=== PATIENT | female | born 1970 | race Caucasian/White ===

== ENCOUNTER 2019-05-26 19:16 | Emergency (ER) | payer OTHER ==
[~2019-05-26] VITALS: Ht 162.6 cm; Wt 81.2 kg
[~2019-05-26 19:16] MED LIST: ALBU90OI; ALBU90OI INH; ALBU90OI6 INH; ALBU90OI61 INH; AZIT250 PO; BUDE6HFA INH; CARI350 PO; CEPH500 PO; CLOM50A; CLON1; CLON1 PO; CLON2; CODACE30 PO; Cipro250 MG PO; DOCU100 PO; ERYT250 PO; ERYT500; FAMO20 PO; FERR325 PO; FISH1000; FLUV50; HYDACE5 PO; HYDHCL25 PO; HYDPAM25 PO; IBUP600 PO; IBUP800; LORA1; LORA1 PO; MECL25; MECL25 PO; METO10 PO; MICO2TCA TOP; MULVITMINE; MULVITMINE PO; NAPR500; NAPR500 PO; NIFEDICAL XL; OXYACE5T PO; POTCHL20ER PO; PRED20 PO; PRENZ; PRENZ PO; PROG100; PROG100 PO; PROGESTERONE CREAM; PROM25; Pepcid20 MG PO; Percocet 5-3251 EACH PO; QUET100; QUET25; RANI150; RISP.25; RXCODACET PO; RXOXYACE PO; SERT100 PO; SERT25; SULTRIDS PO; TRIAOI; Valium5 MG PO; [UNRECOGNIZED DRUG - OTHER]; [UNRECOGNIZED DRUG - OTHER]; [UNRECOGNIZED DRUG - OTHER]; [UNRECOGNIZED DRUG - REMARK]; [UNRECOGNIZED DRUG - REMARK]
[2019-05-26 19:37] LABS: Source, Urine Clean Catch
[2019-05-26 19:41] LABS: Bilirubin, Urine Neg (Neg); Blood, Urine 2+ (Neg); Glucose Qualitative, Urine Neg (Neg); Ketones, Urine Neg (Neg); Leukocyte Esterase, Urine 2+ (Neg); Nitrite, Urine Neg (Neg); Protein, Urine Neg (Neg); Urobilinogen, Urine NORM (Normal)
[2019-05-26 19:49] LABS: Appearance, Urine Clear (Clear); Color, Urine Yellow (P-Yellow); White Blood Cells, Urine 25-50 /hpf (0-5)
[2019-05-26 19:50] LABS: Bacteria Few /hpf; Squamous Epithelial Cells Mod /hpf (Few)
[2019-05-26] MEDS ORDERED: CEPH500 PO (20:10)
[2019-05-26] MEDS ORDERED: Cyclobenzaprine5 MG PO (20:10)
[2019-05-26] MEDS ORDERED: IBUP800 PO (20:10)
== END 2019-05-26 20:19 | disposition home or self-care (01) ==
LOC: ER 19:16
PROVIDERS: Physician Assistant
DX: M54.2 Cervicalgia (principal); N39.0 Urinary tract infection, site not specified; F32.9 Major depressive disorder, single episode, unspecified; J45.909 Unspecified asthma, uncomplicated; Z88.0 Allergy status to penicillin; Z79.899 Other long term (current) drug therapy
CPT/HCPCS: 81001; 87077; 87086; 87186; 99283

== ENCOUNTER 2022-03-09 08:42 | Emergency (ER) | payer OTHER ==
[~2022-03-09] VITALS: Ht 157.5 cm; Wt 82.5 kg
[~2022-03-09 08:42] MED LIST changes: +Cyclobenzaprine5 MG PO; +IBUP800 PO
[2022-03-09 09:35] LABS: Source, Urine Clean Catch
[2022-03-09 09:43] LABS: Appearance, Urine Turbid (Clear); Bilirubin, Urine Neg (Neg); Blood, Urine 5+ (Neg); Color, Urine Brown (P-Yellow); Glucose Qualitative, Urine Neg (Neg); Ketones, Urine Neg (Neg); Leukocyte Esterase, Urine 3+ (Neg); Nitrite, Urine Neg (Neg); Protein, Urine 3+ (Neg); Specific Gravity, Urine 1.025 (1.003-1.022); Urobilinogen, Urine NORM (Normal)
[2022-03-09 10:00] LABS: Bacteria Mod /hpf; Red Blood Cells, Urine TNTC /hpf (0-2); Squamous Epithelial Cells Few /hpf (Few); White Blood Cells, Urine TNTC /hpf (0-5)
[2022-03-09 10:53] LABS: Alanine Aminotransfer (ALT/SGP 33 U/L (12-78); Albumin, Blood 3.6 g/dL (3.4-5.0); Alk Phos 80 U/L (50-136); Anion Gap 5 mmol/L (6-16); Aspartate Aminotrans (AST/SGOT 20 U/L (12-37); Bilirubin, Total 0.3 mg/dL (0.1-1.0); Blood Urea Nitrogen 15 mg/dL (8-24); CO2, Blood 27 mmol/L (21-32); Chloride, Blood 109 mmol/L (98-108); Creatinine, Blood 0.79 mg/dL (0.40-1.00); Globulin, Blood 3.6 g/dL (2.2-4.0); Glomerular Filtration Rate >60 (60-); Glucose, Blood 95 mg/dL (70-99); Potassium, Blood 4.2 mmol/L (3.5-5.5); Sodium, Blood 141 mmol/L (136-145); Total Protein, Blood 7.2 g/dL (6.4-8.2)
[2022-03-09 11:45] LABS: BASOPHILS ABSOLUTE AUTO 0.03 K/mm3 (0.00-0.23); BASOPHILS PERCENT AUTO 0 % (0-2); EOSINOPHILS ABSOLUTE AUTO 0.27 K/mm3 (0.00-0.68); EOSINOPHILS PERCENT AUTO 3 % (0-6); Hematocrit 39.3 % (33.0-51.0); Hemoglobin 12.9 g/dL (11.5-16.0); IMMATURE GRAN ABSOLUTE AUTO 0.03 K/mm3 (0.00-0.10); IMMATURE GRAN PERCENT AUTO 0 % (0-1); LYMPHOCYTES ABSOLUTE AUTO 2.68 K/mm3 (0.84-5.20); LYMPHOCYTES PERCENT AUTO 27 % (21-46); MONOCYTES ABSOLUTE AUTO 0.87 K/mm3 (0.16-1.47); MONOCYTES PERCENT AUTO 9 % (4-13); Mean Corpuscular HGB 30.1 pg (26.0-34.0); Mean Corpuscular HGB Conc 32.8 g/dL (31.5-36.5); Mean Corpuscular Volume 92 fL (80-100); Mean Platelet Volume 9.4 fL (9.1-12.4); NEUTROPHILS ABSOLUTE AUTO 5.95 K/mm3 (1.96-9.15); NEUTROPHILS PERCENT AUTO 61 % (41-73); Platelet Count 312 K/mm3 (150-400); RDW Coefficient Variation 11.9 % (11.7-14.2); RDW Standard Deviation 40.4 fL (35.1-46.3); Red Blood Cell Count 4.29 M/mm3 (3.80-5.20); White Blood Cell Count 9.83 K/mm3 (4.00-11.30)
[2022-03-09] MEDS ORDERED: CEPH500 PO (12:18)
[2022-03-09] MEDS ORDERED: ONDA4ODT MM (12:18)
== END 2022-03-09 13:00 | disposition home or self-care (01) ==
LOC: ER 08:42
PROVIDERS: Emergency Medicine
DX: N39.0 Urinary tract infection, site not specified (principal); E03.9 Hypothyroidism, unspecified; Z88.0 Allergy status to penicillin; Z88.5 Allergy status to narcotic agent; Z79.899 Other long term (current) drug therapy
CPT/HCPCS: 36415; 74176; 80053; 81001; 81025; 83690; 85025; 87077; 87086; 87186; 96374; 96375; 99284-25; J0696; J1885; J2405

== ENCOUNTER → 2022-06-05 | Outpatient (CLI) | payer OTHER ==
[~2022-06-05] MED LIST changes: +ONDA4ODT MM
== END | disposition home or self-care (01) ==
LOC: LAB 06:00 → LAB SHORT 06:00
DX: N20.0 Calculus of kidney (principal)
CPT/HCPCS: 81050

== ENCOUNTER 2023-06-30 16:17 | Emergency (ER) | payer OTHER ==
[~2023-06-30] VITALS: Ht 162.6 cm; Wt 83.9 kg
[2023-06-30 16:29] VITALS: BP 146/93
== END 2023-06-30 17:46 | disposition home or self-care (01) ==
LOC: ER 16:17
DX: S60.031A Contusion of right middle finger without damage to nail, initial encounter (principal); W22.8XXA Striking against or struck by other objects, initial encounter; Z88.8 Allergy status to other drugs, medicaments and biological substances; Z88.5 Allergy status to narcotic agent; Z88.0 Allergy status to penicillin; Z79.899 Other long term (current) drug therapy; J45.909 Unspecified asthma, uncomplicated; E03.9 Hypothyroidism, unspecified
CPT/HCPCS: 73140; A9270; J1885

== ENCOUNTER 2023-07-16 08:12 | Day surgery (SDC) | payer OTHER ==
[~2023-07-16] VITALS: Ht 162.6 cm; Wt 83.6 kg
[2023-07-16] MEDS ORDERED: SERT100 (08:45)
[2023-07-16] MEDS ORDERED: ESTRADIOL1 EAC2 (08:46)
[2023-07-16] MEDS ORDERED: CYCL10 (08:46)
[2023-07-16] MEDS ORDERED: PROG100 (08:46)
[2023-07-16 10:16] VITALS: BP 104/80
== END 2023-07-16 10:20 | disposition home or self-care (01) ==
LOC: ORSCSDS 08:12
PROVIDERS: Internal Medicine Gastroenterology
PROC: 0DB78ZX Excision of Stomach, Pylorus, Via Natural or Artificial Opening Endoscopic, Diagnostic (ICD-10-PCS; principal; 2023-07-16 09:45)
PROC: 0DBE8ZX Excision of Large Intestine, Via Natural or Artificial Opening Endoscopic, Diagnostic (ICD-10-PCS; principal; 2023-07-16 09:45)
PROC: 0DB98ZX Excision of Duodenum, Via Natural or Artificial Opening Endoscopic, Diagnostic (ICD-10-PCS; principal; 2023-07-16 09:45)
DX: R19.7 Diarrhea, unspecified (principal); R19.5 Other fecal abnormalities; K29.70 Gastritis, unspecified, without bleeding; K44.9 Diaphragmatic hernia without obstruction or gangrene; K64.8 Other hemorrhoids; K64.4 Residual hemorrhoidal skin tags; K57.30 Diverticulosis of large intestine without perforation or abscess without bleeding; Z79.899 Other long term (current) drug therapy; E03.9 Hypothyroidism, unspecified
CPT/HCPCS: 88305; 88342; J2250; J2704; J7120

== ENCOUNTER 2023-12-17 18:26 | Emergency (ER) | payer OTHER ==
[~2023-12-17] VITALS: Ht 160 cm; Wt 83.0 kg
[~2023-12-17 18:26] MED LIST changes: +CYCL10; +ESTRADIOL1 EAC2; +SERT100
[2023-12-17 18:54] VITALS: BP 106/71
== END 2023-12-17 23:15 | disposition home or self-care (01) ==
LOC: ER 18:26
DX: S06.0X0A Concussion without loss of consciousness, initial encounter (principal); S01.01XA Laceration without foreign body of scalp, initial encounter; W22.8XXA Striking against or struck by other objects, initial encounter; Z88.0 Allergy status to penicillin; Z88.5 Allergy status to narcotic agent; Z88.8 Allergy status to other drugs, medicaments and biological substances; Z79.899 Other long term (current) drug therapy; J45.909 Unspecified asthma, uncomplicated; E03.9 Hypothyroidism, unspecified
CPT/HCPCS: 12001; 70450; 90471; 90714; 99283-25

== ENCOUNTER → 2024-05-30 | Outpatient (CLI) | payer OTHER ==
[2024-05-31 14:32] LABS: Adenovirus F 40/41 Not Detected (NOT DETECT); Astrovirus Not Detected (NOT DETECT); Campylobacter Sp Not Detected (NOT DETECT); Cryptosporidium Not Detected (NOT DETECT); Cyclospora Cayetanensis Not Detected (NOT DETECT); E. Coli O157 Not Detected (NOT DETECT); Entamoeba Histolytica Not Detected (NOT DETECT); Enteroaggregative E. coli-EAEC Not Detected (NOT DETECT); Enteropathogenic E. coli-EPEC Not Detected (NOT DETECT); Enterotoxigenic E. coli-ETEC Not Detected (NOT DETECT); Giardia Lamblia Not Detected (NOT DETECT); Norovirus GI/GII Not Detected (NOT DETECT); Plesiomonas Shigelloides Not Detected (NOT DETECT); Rotavirus A Not Detected (NOT DETECT); Salmonella Sp Not Detected (NOT DETECT); Sapovirus Not Detected (NOT DETECT); Shiga Toxin-prod E. coli-STEC Not Detected (NOT DETECT); Shigella/Enteroin E. coli-EIEC Not Detected (NOT DETECT); Vibrio Cholerae Not Detected (NOT DETECT); Vibrio Sp Not Detected (NOT DETECT); Yersinia Enterocolitica Not Detected (NOT DETECT)
== END | disposition home or self-care (01) ==
LOC: LAB SHORT 11:20 → LAB 11:20
PROVIDERS: Physician Assistant Medical
DX: R19.7 Diarrhea, unspecified (principal)
CPT/HCPCS: 87507

== ENCOUNTER → 2024-06-23 | Outpatient (CLI) | payer OTHER ==
[2024-06-27 23:30] LABS: PANCREATIC ELASTASE,FECAL >800 ug/g (>=100)
== END | disposition home or self-care (01) ==
LOC: LAB SHORT 17:18
PROVIDERS: Physician Assistant Medical
DX: R19.7 Diarrhea, unspecified (principal)
CPT/HCPCS: 82653; 84999; 87338

== ENCOUNTER → 2024-08-17 | Outpatient (CLI) | payer OTHER ==
[2024-08-17 16:31] LABS: Adenovirus F 40/41 Not Detected (NOT DETECT); Astrovirus Not Detected (NOT DETECT); Campylobacter Sp Not Detected (NOT DETECT); Cryptosporidium Not Detected (NOT DETECT); Cyclospora Cayetanensis Not Detected (NOT DETECT); E. Coli O157 Not Detected (NOT DETECT); Entamoeba Histolytica Not Detected (NOT DETECT); Enteroaggregative E. coli-EAEC Not Detected (NOT DETECT); Enteropathogenic E. coli-EPEC Not Detected (NOT DETECT); Enterotoxigenic E. coli-ETEC Not Detected (NOT DETECT); Giardia Lamblia Not Detected (NOT DETECT); Norovirus GI/GII Not Detected (NOT DETECT); Plesiomonas Shigelloides Not Detected (NOT DETECT); Rotavirus A Not Detected (NOT DETECT); Salmonella Sp Not Detected (NOT DETECT); Sapovirus Not Detected (NOT DETECT); Shiga Toxin-prod E. coli-STEC Not Detected (NOT DETECT); Shigella/Enteroin E. coli-EIEC Not Detected (NOT DETECT); Vibrio Cholerae Not Detected (NOT DETECT); Vibrio Sp Not Detected (NOT DETECT); Yersinia Enterocolitica Not Detected (NOT DETECT)
== END ==
LOC: LAB SHORT 11:25 → LAB 11:25
PROVIDERS: Physician Assistant Medical
DX: R19.7 Diarrhea, unspecified (principal)
CPT/HCPCS: 87507

== ENCOUNTER 2024-10-06 05:40 | Day surgery (SDC) | payer OTHER ==
[~2024-10-06] VITALS: Ht 160 cm; Wt 83.8 kg
[2024-10-06] VITALS (18 sets, daily range): BP systolic 102–150; BP diastolic 67–89
[~2024-10-06 05:40] MED LIST changes: +AIRSUPRA 90-810.7 GM INH; +AIRSUPRA 90-810.7 GM PO; +ASPI81CH PO; +ESTRADIOL (TWI1 EAC3 TOP; +Estrace Vagin42.5 GM VAG; +FLUTICASONE-SAL12 G2 INH; +MONT10T PO; +Norethindrone Ac5 MG PO; +PANT40 PO; +Premarin0.3 MG PO; +ROSUVASTATIN CA10 MG PO; +ZYRTEC10 M2 PO
[2024-10-06] MEDS ORDERED: Lactated Ringer's 1,000 ML IV SCH ×2 (06:35→11:25)
[2024-10-06] MEDS ORDERED: CeFAZolin Sodium 2,000 MG in NS 100 ML IV SCH ×2 (06:35→14:00)
[2024-10-06] MEDS ORDERED: FentaNYL Citrate 50 MCG/ML 2 ML Injection ONE ×2 (07:25→11:12)
[2024-10-06] MEDS ORDERED: Ondansetron HCl 2 MG / ML 2ML Vial ONE ×2 (07:25→11:27)
[2024-10-06] MEDS ORDERED: Midazolam HCl 1MG / ML 2ML Vial ONE (07:25)
[2024-10-06] MEDS ORDERED: Dexamethasone Sod Phos 10 MG/ML 1ML VIAL ONE (07:25)
[2024-10-06] MEDS ORDERED: Rocuronium Bromide 10 MG/ML 5ML Injection IV ONE (07:25)
[2024-10-06] MEDS ORDERED: propofoL 20 ML IV ONE ×2 (07:25→09:45)
[2024-10-06] MEDS ORDERED: ALPRAZOLAM0.5 MG PO (07:30)
[2024-10-06] MEDS ORDERED: FERSU300 PO (07:32)
[2024-10-06] MEDS ORDERED: IPRAT-ALBUT 0.5-3 ML IH (07:33)
[2024-10-06] MEDS ORDERED: Bupivacaine 0.5% HCl 5 MG/ML 30MLVIAL ONE (07:51)
[2024-10-06] MEDS ORDERED: propofoL 40 ML IV ONE ×2 (09:12→09:58)
[2024-10-06] MEDS ORDERED: HYDROmorphone HCl/Pf 1MG SYR ONE ×2 (09:20→11:27)
[2024-10-06] MEDS ORDERED: Sugammadex Sodium 200 MG/2ML SDV (100 MG/ML) ONE (09:51)
[2024-10-06] MEDS ORDERED: Ketorolac Tromethamine 30mg Vial ONE (10:53)
[2024-10-06] MEDS ORDERED: Cyclobenzaprine HCl 10 MG Tab PO PRN (11:15)
[2024-10-06] MEDS ORDERED: ALPRAZolam 0.5 MG Tab PO PRN (11:15)
[2024-10-06] MEDS ORDERED: Ipratropium/Albuterol SulF 2.5-0.5MG/3 ML Amp INH SCH (11:15)
[2024-10-06] MEDS ORDERED: Ondansetron HCl 2 MG / ML 2ML Vial IV PRN (11:25)
[2024-10-06] MEDS ORDERED: Mometasone/Formoterol MDI 200/5 mcg 13 GM INH SCH (11:25)
[2024-10-06] MEDS ORDERED: Albuterol HFA200 ACT/6.7 GM INH INH PRN (11:25)
[2024-10-06] MEDS ORDERED: Naloxone HCl 0.4MG / ML 1ML Vial IV PRN (11:25)
[2024-10-06] MEDS ORDERED: Promethazine HCl 25 MG Tab PO PRN (11:25)
[2024-10-06] MEDS ORDERED: Promethazine HCl 12.5 MG Supp PR PRN (11:30)
[2024-10-06] MEDS ORDERED: Ondansetron 4 MG TAB PO PRN (11:30)
[2024-10-06] MEDS ORDERED: Simethicone 80 MG Chew PO PRN (11:30)
[2024-10-06] MEDS ORDERED: HYDROmorphone HCl/Pf 1MG SYR IV PRN (11:30)
[2024-10-06] MEDS ORDERED: OxyCODONE 5 mg/Acetamin 325 mg TABLET PO PRN (11:30)
[2024-10-06] MEDS ORDERED: FLU VACC TS2024-25(6MOS UP)/PF 45 MCG/0.5 ML SYRINGE IM SCH (11:35)
[2024-10-06] MEDS ORDERED: Ketorolac Tromethamine 30mg Vial IV PRN (12:15)
--- NOTE | 2024-10-06 17:34 | NUR ---
Pt. is awake in bed when she welcomes my visit. Pt. is pleasant and spouse is at bedside. Facilitated a life review and made multiple relational connections from the community as rapport is established. Pt. displayed evidence of great trust. Pt. was unsettled by the limited amount of movemement she was experiencing. Sought to normalize the Pt. experience. A lengthy time of encouragement and pastoral care is given. Prayed for pt. Pt. and spouse verbalize gratitude for the spiritual care they received.
--- NOTE | 2024-10-06 19:32 | NUR ---
SHIFT SUMMARY POD0 LAP HYSTER, A/OX4, VSS, TOLERATING PO, ABD LAP SITES C/D/I, PAM PAD HAD SMALL AMT DRAINAGE AND CHANGED 1X BY THIS RN. DECKER REMOVED AT AROUND 191 AND SHE HAS YET TO VOID OR GET UP. SHE WAS REPORTING HIGH PAIN LEVELS WHEN SHE ARRIVED ON THE FLOOR BUT WAS ALSO VERY SLEEPY AND WOULD FALL ASLEEP AFTER ASKING FOR MEDS. PAIN WAS MEDICATING FOR AFTER SHE WAS ABLE TO WAKE UP MORE AND IT COULD BE GIVEN SAFELY. NO OTHER EVENTS THIS SHIFT, CALL LIGHT IN REACH.
[2024-10-06] MEDS ORDERED: Montelukast Sodium 10 MG Tab PO SCH (21:00)
[2024-10-06] MEDS ORDERED: Loratadine 10 MG Tab PO SCH (21:00)
[2024-10-06] MEDS ORDERED: Sertraline HCl 100 MG Tab PO SCH (21:00)
[2024-10-06] MEDS ORDERED: Rosuvastatin Calcium 10 MG Tab PO SCH (21:00)
[2024-10-06] MEDS ORDERED: Aspirin 81 MG Chew PO SCH (21:00)
[2024-10-07 03:26] VITALS: BP 115/69
[2024-10-07 05:14] LABS: BASOPHILS ABSOLUTE AUTO 0.03 K/mm3 (0.00-0.23); BASOPHILS PERCENT AUTO 0 % (0-2); EOSINOPHILS PERCENT AUTO 0 % (0-6); Hematocrit 36.1 % (33.0-51.0); IMMATURE GRAN ABSOLUTE AUTO 0.09 K/mm3 (0.00-0.10); IMMATURE GRAN PERCENT AUTO 1 % (0-1); LYMPHOCYTES ABSOLUTE AUTO 1.75 K/mm3 (0.84-5.20); LYMPHOCYTES PERCENT AUTO 9 % (21-46); MONOCYTES ABSOLUTE AUTO 1.31 K/mm3 (0.16-1.47); MONOCYTES PERCENT AUTO 7 % (4-13); Mean Corpuscular HGB Conc 33.2 g/dL (31.5-36.5); Mean Corpuscular Volume 90 fL (80-100); NEUTROPHILS ABSOLUTE AUTO 16.72 K/mm3 (1.96-9.15); NEUTROPHILS PERCENT AUTO 84 % (41-73); Platelet Count 279 K/mm3 (150-400); RDW Coefficient Variation 12.4 % (11.7-14.2); RDW Standard Deviation 41.1 fL (35.1-46.3)
--- NOTE | 2024-10-07 05:28 | NUR ---
SHIFT SUMMARY NOC. PT POD 1 FOR LAP ASSISTED HYSTERECTOMY. PT LAP SITES X4 C/D/I. ABDOMINAL BINDER IN PLACE. PT MEDICATED FOR PAIN WITH ORALS AND BREAKTHROUGH IV DILAUDID. PT ANXIOUS AND NEEDED REASSURANCE. PT VOIDING URINE AND TOLERATING DIET. PT REPORTS GAS PAINS IN RIGHT SHOULDER, MEDICATED WITH SIMETHICONE. PT AMBULATES TO WITH SBA. BED IN LOWEST POSITION AND CALL LIGHT IN REACH.
[2024-10-07] MEDS ORDERED: Pantoprazole Sodium 40 MG Tab PO SCH (06:00)
[2024-10-07 07:11] VITALS: BP 104/64
[2024-10-07] MEDS ORDERED: Magnesium Hydroxide Conc 10 ML UDC PO ONE (11:05)
[2024-10-07 14:20] VITALS: BP 137/87
--- NOTE | 2024-10-07 14:24 | NUR ---
AFTER AMBULATING HALLWAY, PT REPORTED PRESSURE NEAR HER RIGHT CLAVICLE AND SHOULDER AREA. PT STATES THE PAIN COMES AND GOES. PT VERBALIZES SHE THINKS IT IS GAS PAIN. PT REPORTS SHE WAS HAVING SIMILAR PAINS LAST NOC. VSS. PT ABD MODERATELY DISTENDED. PT REPORTS ONLY PASSING A VERY SMALL AMOUNT OF FLATUS.
--- NOTE | 2024-10-07 14:31 | NUR ---
While walking the el the Pt complained of SOB and slight chest pain. RN notified and came in and assessed Pt.
[2024-10-07 15:17] VITALS: BP 130/62
[2024-10-07] MEDS ORDERED: Percocet 5-3251 EACH PO (17:53)
[2024-10-07] MEDS ORDERED: PROM25 PO (17:53)
[2024-10-07] MEDS ORDERED: SIME80CH PO (17:53)
[2024-10-07] MEDS ORDERED: MIRALAX17 GM PO (17:54)
--- NOTE | 2024-10-07 18:20 | NUR ---
DISCHARGE PT EDUCATED ON AND RECEIVED PRINTED DISCHARGE INSTRUCTIONS AND VERBALIZED AN UNDERSTANDING. PT REPORTS FILLING NEW RX PRIOR TO ADMISSION. IV DC'D. PT LEFT WITH PERSONAL BELONGINGS AND ESCORTED OUT VIA W/C WITH TO TAKE HER HOME.
[2024-10-12] MEDS ORDERED: ELIQUIS5 M2 PO (19:19)
== END 2024-10-07 18:38 | disposition home or self-care (01) ==
LOC: ORSCMMR 05:40 → ORD 08:00 → ORSCMMR 08:00 → SURS 12:00 → ORSCMMR 10-07 18:38 → ORD 11-24 11:00
PROVIDERS: Obstetrics & Gynecology
PROC: 0UT94ZZ Resection of Uterus, Percutaneous Endoscopic Approach (ICD-10-PCS; principal; 2024-10-06 08:00)
PROC: 0UT74ZZ Resection of Bilateral Fallopian Tubes, Percutaneous Endoscopic Approach (ICD-10-PCS; principal; 2024-10-06 08:00)
PROC: 0UT24ZZ Resection of Bilateral Ovaries, Percutaneous Endoscopic Approach (ICD-10-PCS; principal; 2024-10-06 08:00)
PROC: 0U5F4ZZ Destruction of Cul-de-sac, Percutaneous Endoscopic Approach (ICD-10-PCS; principal; 2024-10-06 08:00)
DX: N95.0 Postmenopausal bleeding (principal); N94.6 Dysmenorrhea, unspecified; N94.10 Unspecified dyspareunia; N80.329 Endometriosis of the posterior cul-de-sac, unspecified depth; D25.9 Leiomyoma of uterus, unspecified; N73.6 Female pelvic peritoneal adhesions (postinfective); N83.8 Other noninflammatory disorders of ovary, fallopian tube and broad ligament; G47.33 Obstructive sleep apnea (adult) (pediatric); E78.5 Hyperlipidemia, unspecified; K21.9 Gastro-esophageal reflux disease without esophagitis; F32.A Depression, unspecified; F41.9 Anxiety disorder, unspecified; E03.9 Hypothyroidism, unspecified; Z79.899 Other long term (current) drug therapy; J45.909 Unspecified asthma, uncomplicated; Z79.82 Long term (current) use of aspirin; Z86.73 Personal history of transient ischemic attack (TIA), and cerebral infarction without residual deficits
CPT/HCPCS: 36415; 82947; 85025; 86850; 86900; 86901; 88307; 94640; 94664; 94762; A9270; J0690; J1100; J1171; J1885; J2250; J2405; J2704; J3010; J7120

== ENCOUNTER 2024-10-23 14:05 | Emergency (ER) | payer OTHER ==
[~2024-10-23] VITALS: Ht 162.6 cm; Wt 79.8 kg
[~2024-10-23 14:05] MED LIST changes: +ALPRAZOLAM0.5 MG PO; +ELIQUIS5 M2 PO; +FERSU300 PO; +IPRAT-ALBUT 0.5-3 ML IH; +MIRALAX17 GM PO; +PROM25 PO; +SIME80CH PO
[2024-10-23 14:53] LABS: BASOPHILS ABSOLUTE AUTO 0.06 K/mm3 (0.00-0.23); BASOPHILS PERCENT AUTO 1 % (0-2); EOSINOPHILS ABSOLUTE AUTO 0.21 K/mm3 (0.00-0.68); EOSINOPHILS PERCENT AUTO 2 % (0-6); Hematocrit 41.2 % (33.0-51.0); Hemoglobin 14.1 g/dL (11.5-16.0); IMMATURE GRAN ABSOLUTE AUTO 0.02 K/mm3 (0.00-0.10); IMMATURE GRAN PERCENT AUTO 0 % (0-1); LYMPHOCYTES ABSOLUTE AUTO 2.84 K/mm3 (0.84-5.20); LYMPHOCYTES PERCENT AUTO 32 % (21-46); MONOCYTES ABSOLUTE AUTO 0.79 K/mm3 (0.16-1.47); MONOCYTES PERCENT AUTO 9 % (4-13); Mean Corpuscular HGB 30.4 pg (26.0-34.0); Mean Corpuscular HGB Conc 34.2 g/dL (31.5-36.5); Mean Corpuscular Volume 89 fL (80-100); Mean Platelet Volume 8.8 fL (9.1-12.4); NEUTROPHILS ABSOLUTE AUTO 4.89 K/mm3 (1.96-9.15); NEUTROPHILS PERCENT AUTO 56 % (41-73); Platelet Count 366 K/mm3 (150-400); RDW Coefficient Variation 12.3 % (11.7-14.2); RDW Standard Deviation 40.1 fL (35.1-46.3); Red Blood Cell Count 4.64 M/mm3 (3.80-5.20); White Blood Cell Count 8.81 K/mm3 (4.00-11.30)
[2024-10-23 15:09] LABS: Albumin, Blood 4.1 g/dL (3.4-5.0); Albumin/Globulin Ratio 1.2 (0.8-1.8); Bilirubin, Total 0.5 mg/dL (0.1-1.0); Bun/Creatinine Ratio 20.3 (12.0-20.0); Calcium, Blood 8.8 mg/dL (8.5-10.1); Creatinine, Blood 0.84 mg/dL (0.40-1.00); Globulin, Blood 3.3 g/dL (2.2-4.0); Magnesium, Blood 2.1 mg/dL (1.6-2.4); Potassium, Blood 3.8 mmol/L (3.5-5.5); Total Protein, Blood 7.4 g/dL (6.4-8.2)
[2024-10-23] MEDS ORDERED: Meclizine HCl 25 MG Tab PO ONE (15:45)
[2024-10-23] MEDS ORDERED: MOTION RELIEF25 MG PO (17:02)
[2024-10-23 17:18] VITALS: BP 138/79
== END 2024-10-23 17:19 | disposition home or self-care (01) ==
LOC: ER 14:05
PROVIDERS: Physician Assistant
DX: H81.399 Other peripheral vertigo, unspecified ear (principal); J45.909 Unspecified asthma, uncomplicated; E03.9 Hypothyroidism, unspecified; Z79.51 Long term (current) use of inhaled steroids; Z79.52 Long term (current) use of systemic steroids; Z79.899 Other long term (current) drug therapy; Z79.82 Long term (current) use of aspirin; Z88.0 Allergy status to penicillin; Z91.018 Allergy to other foods; Z88.8 Allergy status to other drugs, medicaments and biological substances
CPT/HCPCS: 80053; 83735; 85025; 93005; 93010; 99284-25; A9270

== ENCOUNTER 2024-10-29 17:53 | Emergency (ER) | payer OTHER ==
[~2024-10-29] VITALS: Ht 162.6 cm; Wt 82.8 kg
[~2024-10-29 17:53] MED LIST changes: +MOTION RELIEF25 MG PO
[2024-10-29 18:56] LABS: BASOPHILS ABSOLUTE AUTO 0.04 K/mm3 (0.00-0.23); BASOPHILS PERCENT AUTO 1 % (0-2); EOSINOPHILS ABSOLUTE AUTO 0.23 K/mm3 (0.00-0.68); EOSINOPHILS PERCENT AUTO 3 % (0-6); Hematocrit 39.7 % (33.0-51.0); Hemoglobin 13.3 g/dL (11.5-16.0); IMMATURE GRAN ABSOLUTE AUTO 0.03 K/mm3 (0.00-0.10); IMMATURE GRAN PERCENT AUTO 0 % (0-1); LYMPHOCYTES ABSOLUTE AUTO 2.73 K/mm3 (0.84-5.20); LYMPHOCYTES PERCENT AUTO 31 % (21-46); MONOCYTES ABSOLUTE AUTO 0.91 K/mm3 (0.16-1.47); MONOCYTES PERCENT AUTO 10 % (4-13); Mean Corpuscular HGB 30.1 pg (26.0-34.0); Mean Corpuscular HGB Conc 33.5 g/dL (31.5-36.5); Mean Corpuscular Volume 90 fL (80-100); Mean Platelet Volume 9.3 fL (9.1-12.4); NEUTROPHILS ABSOLUTE AUTO 4.81 K/mm3 (1.96-9.15); NEUTROPHILS PERCENT AUTO 55 % (41-73); Platelet Count 334 K/mm3 (150-400); RDW Coefficient Variation 12.7 % (11.7-14.2); RDW Standard Deviation 41.8 fL (35.1-46.3); Red Blood Cell Count 4.42 M/mm3 (3.80-5.20); White Blood Cell Count 8.75 K/mm3 (4.00-11.30)
[2024-10-29 19:58] LABS: Albumin, Blood 3.8 g/dL (3.4-5.0); Albumin/Globulin Ratio 1.3 (0.8-1.8); Bilirubin, Total 0.2 mg/dL (0.1-1.0); Bun/Creatinine Ratio 27.4 (12.0-20.0); Calcium, Blood 8.7 mg/dL (8.5-10.1); Creatinine, Blood 0.73 mg/dL (0.40-1.00); Globulin, Blood 2.9 g/dL (2.2-4.0); Potassium, Blood 3.9 mmol/L (3.5-5.5); Total Protein, Blood 6.7 g/dL (6.4-8.2)
[2024-10-29 21:25] VITALS: BP 135/92
== END 2024-10-29 21:27 | disposition home or self-care (01) ==
LOC: ER 17:53
PROVIDERS: Student in an Organized Health Care Education/Training Program
DX: R10.11 Right upper quadrant pain (principal); R07.89 Other chest pain; Z88.8 Allergy status to other drugs, medicaments and biological substances; Z88.0 Allergy status to penicillin; Z79.899 Other long term (current) drug therapy; Z79.82 Long term (current) use of aspirin
CPT/HCPCS: 71046; 76705; 80053; 84484; 85025; 93005; 93010; 99284-25

== ENCOUNTER 2024-12-29 10:30 | Emergency (ER) | payer OTHER ==
[~2024-12-29] VITALS: Ht 160 cm; Wt 79.8 kg
[2024-12-29 11:36] LABS: BASOPHILS ABSOLUTE AUTO 0.05 K/mm3 (0.00-0.23); BASOPHILS PERCENT AUTO 1 % (0-2); EOSINOPHILS ABSOLUTE AUTO 0.23 K/mm3 (0.00-0.68); EOSINOPHILS PERCENT AUTO 3 % (0-6); Hematocrit 40.2 % (33.0-51.0); Hemoglobin 13.7 g/dL (11.5-16.0); IMMATURE GRAN ABSOLUTE AUTO 0.02 K/mm3 (0.00-0.10); IMMATURE GRAN PERCENT AUTO 0 % (0-1); LYMPHOCYTES ABSOLUTE AUTO 2.82 K/mm3 (0.84-5.20); LYMPHOCYTES PERCENT AUTO 40 % (21-46); MONOCYTES ABSOLUTE AUTO 0.56 K/mm3 (0.16-1.47); MONOCYTES PERCENT AUTO 8 % (4-13); Mean Corpuscular HGB 30.3 pg (26.0-34.0); Mean Corpuscular HGB Conc 34.1 g/dL (31.5-36.5); Mean Corpuscular Volume 89 fL (80-100); Mean Platelet Volume 9.3 fL (9.1-12.4); NEUTROPHILS ABSOLUTE AUTO 3.38 K/mm3 (1.96-9.15); NEUTROPHILS PERCENT AUTO 48 % (41-73); Platelet Count 290 K/mm3 (150-400); RDW Coefficient Variation 12.6 % (11.7-14.2); RDW Standard Deviation 40.9 fL (35.1-46.3); Red Blood Cell Count 4.52 M/mm3 (3.80-5.20); White Blood Cell Count 7.06 K/mm3 (4.00-11.30)
[2024-12-29 12:02] LABS: Albumin, Blood 4.1 g/dL (3.4-5.0); Albumin/Globulin Ratio 1.2 (0.8-1.8); Bilirubin, Total 0.7 mg/dL (0.1-1.0); Bun/Creatinine Ratio 18.5 (12.0-20.0); Calcium, Blood 9.1 mg/dL (8.5-10.1); Creatinine, Blood 0.86 mg/dL (0.40-1.00); Globulin, Blood 3.5 g/dL (2.2-4.0); Potassium, Blood 3.9 mmol/L (3.5-5.5); Total Protein, Blood 7.6 g/dL (6.4-8.2)
[2024-12-29 12:06] LABS: Source, Urine Clean Catch
[2024-12-29 12:28] LABS: Appearance, Urine Hazy (Clear); Bilirubin, Urine Neg (Neg); Blood, Urine 5+ (Neg); Color, Urine Yellow (P-Yellow); Glucose Qualitative, Urine Neg (Neg); Ketones, Urine Neg (Neg); Leukocyte Esterase, Urine 2+ (Neg); Nitrite, Urine Neg (Neg); Protein, Urine 1+ (Neg); Specific Gravity, Urine 1.025 (1.003-1.022); Urobilinogen, Urine NORM (Normal)
[2024-12-29 12:43] LABS: Bacteria Many /hpf; Red Blood Cells, Urine 50-100 /hpf (0-2); Squamous Epithelial Cells Few /hpf (Few)
[2024-12-29 13:26] VITALS: BP 124/85
== END 2024-12-29 13:25 | disposition home or self-care (01) ==
LOC: ER 10:30
PROVIDERS: Physician Assistant
DX: N93.0 Postcoital and contact bleeding (principal); J45.909 Unspecified asthma, uncomplicated; E03.9 Hypothyroidism, unspecified; Z88.0 Allergy status to penicillin; Z88.8 Allergy status to other drugs, medicaments and biological substances; Z79.82 Long term (current) use of aspirin; Z79.899 Other long term (current) drug therapy; Z79.51 Long term (current) use of inhaled steroids; Z79.52 Long term (current) use of systemic steroids; Z79.818 Long term (current) use of other agents affecting estrogen receptors and estrogen levels
CPT/HCPCS: 76830; 76856; 80053; 81001; 85025; 87077; 87086; 87186; 99284-25

== ENCOUNTER 2025-01-19 10:05 | Emergency (ER) | payer OTHER ==
[~2025-01-19] VITALS: Ht 162.6 cm; Wt 83.9 kg
[2025-01-19] MEDS ORDERED: Ondansetron HCl 2 MG / ML 2ML Vial IV ONE (11:00)
[2025-01-19] MEDS ORDERED: Morphine Sulfate 4 MG/1 ML Injection IV ONE (11:00)
[2025-01-19 11:41] LABS: BASOPHILS ABSOLUTE AUTO 0.05 K/mm3 (0.00-0.23); BASOPHILS PERCENT AUTO 0 % (0-2); EOSINOPHILS ABSOLUTE AUTO 0.28 K/mm3 (0.00-0.68); EOSINOPHILS PERCENT AUTO 3 % (0-6); Hematocrit 40.9 % (33.0-51.0); Hemoglobin 13.7 g/dL (11.5-16.0); IMMATURE GRAN ABSOLUTE AUTO 0.04 K/mm3 (0.00-0.10); IMMATURE GRAN PERCENT AUTO 0 % (0-1); LYMPHOCYTES ABSOLUTE AUTO 2.83 K/mm3 (0.84-5.20); LYMPHOCYTES PERCENT AUTO 25 % (21-46); MONOCYTES ABSOLUTE AUTO 0.79 K/mm3 (0.16-1.47); MONOCYTES PERCENT AUTO 7 % (4-13); Mean Corpuscular HGB 30.4 pg (26.0-34.0); Mean Corpuscular HGB Conc 33.5 g/dL (31.5-36.5); Mean Corpuscular Volume 91 fL (80-100); Mean Platelet Volume 9.2 fL (9.1-12.4); NEUTROPHILS ABSOLUTE AUTO 7.13 K/mm3 (1.96-9.15); NEUTROPHILS PERCENT AUTO 64 % (41-73); Platelet Count 275 K/mm3 (150-400); RDW Coefficient Variation 12.2 % (11.7-14.2); RDW Standard Deviation 40.6 fL (35.1-46.3); Red Blood Cell Count 4.51 M/mm3 (3.80-5.20); White Blood Cell Count 11.12 K/mm3 (4.00-11.30)
[2025-01-19 12:32] LABS: Albumin, Blood 4.4 g/dL (3.4-5.0); Albumin/Globulin Ratio 1.3 (0.8-1.8); Bilirubin, Total 0.5 mg/dL (0.1-1.0); Bun/Creatinine Ratio 15.5 (12.0-20.0); Calcium, Blood 9.7 mg/dL (8.5-10.1); Creatinine, Blood 0.77 mg/dL (0.40-1.00); Globulin, Blood 3.4 g/dL (2.2-4.0); Magnesium, Blood 2.3 mg/dL (1.6-2.4); Potassium, Blood 4.3 mmol/L (3.5-5.5); Total Protein, Blood 7.8 g/dL (6.4-8.2)
[2025-01-19 12:43] LABS: Source, Urine Clean Catch
[2025-01-19 12:48] LABS: Appearance, Urine Clear (Clear); Bilirubin, Urine Neg (Neg); Blood, Urine Neg (Neg); Color, Urine Yellow (P-Yellow); Glucose Qualitative, Urine Neg (Neg); Ketones, Urine Neg (Neg); Leukocyte Esterase, Urine 2+ (Neg); Nitrite, Urine Pos (Neg); Protein, Urine Neg (Neg); Urobilinogen, Urine NORM (Normal)
[2025-01-19 13:01] LABS: Red Blood Cells, Urine 0-2 /hpf (0-2)
[2025-01-19 13:02] LABS: Bacteria Many /hpf; Squamous Epithelial Cells Mod /hpf (Few)
[2025-01-19] MEDS ORDERED: Ciprofloxacin 400MG/D5 200ML 200 ML IV ONE (15:10)
[2025-01-19] MEDS ORDERED: Ketorolac Tromethamine 15mg Vial IV ONE (15:10)
[2025-01-19] MEDS ORDERED: CIPR500 PO (16:10)
[2025-01-19] MEDS ORDERED: ACET500 PO (16:10)
[2025-01-19 16:45] VITALS: BP 122/82
== END 2025-01-19 17:00 | disposition home or self-care (01) ==
LOC: ER 10:05
PROVIDERS: Emergency Medicine
DX: N12 Tubulo-interstitial nephritis, not specified as acute or chronic (principal); K76.0 Fatty (change of) liver, not elsewhere classified; E03.9 Hypothyroidism, unspecified; J45.909 Unspecified asthma, uncomplicated; Z88.1 Allergy status to other antibiotic agents; Z88.2 Allergy status to sulfonamides; Z88.0 Allergy status to penicillin; Z88.8 Allergy status to other drugs, medicaments and biological substances; Z91.048 Other nonmedicinal substance allergy status; Z79.01 Long term (current) use of anticoagulants; Z79.52 Long term (current) use of systemic steroids; Z79.82 Long term (current) use of aspirin; Z79.51 Long term (current) use of inhaled steroids; Z79.899 Other long term (current) drug therapy
CPT/HCPCS: 71045; 74176; 76705; 80053; 81001; 81025; 83690; 83735; 85025; 96365; 96375; 99284-25; J0744; J1885; J2270; J2405

== ENCOUNTER 2025-02-23 07:34 | Day surgery (SDC) | payer OTHER ==
[2025-02-23] VITALS (16 sets, daily range): BP systolic 113–137; BP diastolic 70–85
[~2025-02-23] VITALS: Ht 157.5 cm; Wt 84.6 kg
[~2025-02-23 07:34] MED LIST changes: +ACET500 PO; -AIRSUPRA 90-810.7 GM PO; +CIPR500 PO; +Clindamycin 600mg in D5W 50 ML IV SCH; +Flonase 0.05% N16 GM; -IPRAT-ALBUT 0.5-3 ML IH; +IPRAT-ALBUT 0.5-3 ML INH; +Lactated Ringer's 1,000 ML IV SCH; +OMEP20ER PO; +TRELEGY ELLIPT1 EACH INH
[2025-02-23] MEDS ORDERED: ROSUVASTATIN CA20 MG PO (08:09)
[2025-02-23] MEDS ORDERED: Bupivacaine 0.5% HCl 5 MG/ML 30MLVIAL ONE (08:40)
--- NOTE | 2025-02-23 08:46 | NUR ---
Ambulatory in Day Surgery History, Chart, Medications and Allergies reviewed before start of procedure. Pre-Op teaching done. Pt verbalizes understanding. Patient States Post-Procedure ride home has been arranged.
[2025-02-23] MEDS ORDERED: FentaNYL Citrate 50 MCG/ML 2 ML Injection ONE ×2 (08:55→10:54)
[2025-02-23] MEDS ORDERED: propofoL 20 ML IV ONE (08:55)
[2025-02-23] MEDS ORDERED: Dexamethasone Sod Phos 10 MG/ML 1ML VIAL ONE (09:03)
[2025-02-23] MEDS ORDERED: Ondansetron HCl 2 MG / ML 2ML Vial ONE (09:03)
[2025-02-23] MEDS ORDERED: Lidocaine HCl 2% 20 ML MDV ONE (09:09)
[2025-02-23] MEDS ORDERED: Labetalol HCL 5 MG/ML 4ML Injection (Single Dose) IV PRN (09:20)
[2025-02-23] MEDS ORDERED: Atropine Sulfate 0.1 MG/ML 10ML SYR IV PRN (09:20)
[2025-02-23] MEDS ORDERED: FentaNYL Citrate 50 MCG/ML 2 ML Injection IV PRN ×2 (09:20)
[2025-02-23] MEDS ORDERED: Ondansetron HCl 2 MG / ML 2ML Vial IV PRN (09:20)
[2025-02-23] MEDS ORDERED: Prochlorperazine Edisylate 10 mg Vial IV PRN (09:20)
[2025-02-23] MEDS ORDERED: Albuterol 2.5 MG/3 ML VIAL INH PRN (09:25)
[2025-02-23] MEDS ORDERED: HYDROmorphone HCl/Pf 1MG SYR IV PRN ×2 (09:25)
[2025-02-23] MEDS ORDERED: Sugammadex Sodium 200 MG/2ML SDV (100 MG/ML) ONE (09:51)
[2025-02-23] MEDS ORDERED: HYDROcodone 5-APAP 325 TAB PO PRN (10:20)
--- NOTE | 2025-02-23 12:01 | NUR ---
DRG C/D/I TO ABD, ICE APPLIED. Discharge instructions reviewed with patient. Patient verbalizes understanding. Copy given to patient to take home. PT MAINTAINING O2 SAT 92-93% ON ROOM AIR, PT STATES SHE WILL GO HOME AND TAKE A NAP AND WEAR HER CPAP. PT READY TO GET DRESSED. SIG OTHER AT BEDSIDE TO HELP. PT TO EDGE OF BED MINIMAL ASSIST, DENIES DIZZINESS, NAUSEA. STATES PAIN IS IMPROVING, DOWN TO A 6 FROM 7/10 WITH PO NORCO. ABDOMENAL BINDER PLACED PER PT REQUEST. Discharged via wheelchair to private car for ride home.
[2025-02-24] MEDS ORDERED: ACET500 PO (11:16)
== END 2025-02-23 12:11 | disposition home or self-care (01) ==
LOC: ORSCMMR 07:34 → ORD 09:00 → ORSCMMR 09:00
PROVIDERS: Surgery
PROC: 0WUF4JZ Supplement Abdominal Wall with Synthetic Substitute, Percutaneous Endoscopic Approach (ICD-10-PCS; principal; 2025-02-23 09:00)
DX: K42.0 Umbilical hernia with obstruction, without gangrene (principal); G47.33 Obstructive sleep apnea (adult) (pediatric); Z86.711 Personal history of pulmonary embolism; Z79.01 Long term (current) use of anticoagulants; J45.909 Unspecified asthma, uncomplicated; K21.9 Gastro-esophageal reflux disease without esophagitis; E03.9 Hypothyroidism, unspecified; E78.5 Hyperlipidemia, unspecified; Z79.82 Long term (current) use of aspirin; Z79.899 Other long term (current) drug therapy
CPT/HCPCS: 71046; 80053; 85025; 96374; 96375; 99285-25; A9270; C1781; J1100; J1200; J2405; J2704; J2919; J3010; J7120

== ENCOUNTER 2025-02-23 19:34 | Observation (INO) | payer OTHER ==
[~2025-02-23] VITALS: Ht 160 cm; Wt 86.1 kg
[~2025-02-23 19:34] MED LIST changes: -Clindamycin 600mg in D5W 50 ML IV SCH; -Lactated Ringer's 1,000 ML IV SCH; +ROSUVASTATIN CA20 MG PO
[2025-02-23] MEDS ORDERED: Famotidine 10 MG/ML 2ML Vial IV ONE ×2 (19:55→20:10)
[2025-02-23] MEDS ORDERED: DiphenhydrAMINE HCl 50 MG/ML 1ML Vial IV ONE ×2 (19:55→20:10)
[2025-02-23] MEDS ORDERED: MethylPREDNISolone Sod Succ 125 MG Vial IV ONE (20:10)
[2025-02-23 20:18] LABS: Hematocrit 41.1 % (33.0-51.0); Hemoglobin 14.3 g/dL (11.5-16.0); Mean Corpuscular HGB 30.8 pg (26.0-34.0); Mean Corpuscular HGB Conc 34.8 g/dL (31.5-36.5); Mean Corpuscular Volume 89 fL (80-100); Mean Platelet Volume 9.6 fL (9.1-12.4); Platelet Count 318 K/mm3 (150-400); RDW Coefficient Variation 11.9 % (11.7-14.2); RDW Standard Deviation 38.5 fL (35.1-46.3); Red Blood Cell Count 4.64 M/mm3 (3.80-5.20); White Blood Cell Count 26.06 K/mm3 (4.00-11.30)
[2025-02-23 20:37] LABS: BAND PERCENT MAN 8 % (0-8); BASOPHILS PERCENT MAN 0 % (0-2); EOSINOPHILS PERCENT MAN 0 % (0-6); LYMPHOCYTES ABSOLUTE MAN 0.78 K/mm3 (0.84-5.20); LYMPHOCYTES PERCENT MAN 3 % (21-46); MONOCYTES ABSOLUTE MAN 1.82 K/mm3 (0.16-1.47); MONOCYTES PERCENT MAN 7 % (4-13); NEUTROPHILS ABSOLUTE MAN 23.45 K/mm3 (1.96-9.15); SEG NEUTROPHILS PERCENT MAN 82 % (41-73); TOTAL CELLS COUNTED 100
[2025-02-23 20:45] LABS: Albumin, Blood 4.1 g/dL (3.4-5.0); Albumin/Globulin Ratio 1.2 (0.8-1.8); Bilirubin, Total 1.2 mg/dL (0.1-1.0); Bun/Creatinine Ratio 32.3 (12.0-20.0); Calcium, Blood 9.2 mg/dL (8.5-10.1); Creatinine, Blood 0.74 mg/dL (0.40-1.00); Globulin, Blood 3.3 g/dL (2.2-4.0); Potassium, Blood 3.9 mmol/L (3.5-5.5); Total Protein, Blood 7.4 g/dL (6.4-8.2)
[2025-02-23] MEDS ORDERED: OxyCODONE HCL 5 MG TAB PO ONE (23:35)
[2025-02-24] MEDS ORDERED: EpiNEPhrine 1 MG/1 ML 1ML Vial ONE (01:04)
[2025-02-24] MEDS ORDERED: DiphenhydrAMINE HCl 50 MG/ML 1ML Vial IV ONE ×2 (01:05→06:10)
[2025-02-24] MEDS ORDERED: EpiNEPhrine 1 MG/1 ML 1ML Vial IM ONE (01:10)
[2025-02-24 05:30] LABS: Source, Urine Clean Catch
[2025-02-24 05:39] LABS: Bilirubin, Urine Neg (Neg); Blood, Urine 1+ (Neg); Glucose Qualitative, Urine Neg (Neg); Ketones, Urine Neg (Neg); Leukocyte Esterase, Urine 1+ (Neg); Nitrite, Urine Neg (Neg); Protein, Urine 1+ (Neg); Urobilinogen, Urine NORM (Normal)
[2025-02-24 05:46] LABS: Appearance, Urine Clear (Clear); Color, Urine Pale Yellow (P-Yellow)
[2025-02-24 05:47] LABS: Bacteria Few /hpf; Squamous Epithelial Cells Many /hpf (Few)
[2025-02-24] MEDS ORDERED: Famotidine 10 MG/ML 2ML Vial IV ONE (06:10)
[2025-02-24] MEDS ORDERED: Prochlorperazine Edisylate 10 mg Vial IV ONE (06:10)
[2025-02-24] MEDS ORDERED: Ketorolac Tromethamine 15mg Vial IV ONE (07:10)
[2025-02-24] MEDS ORDERED: FLU VACC TS2024-25(6MOS UP)/PF 45 MCG/0.5 ML SYRINGE IM SCH (07:40)
[2025-02-24] MEDS ORDERED: DiphenhydrAMINE HCl 50 MG/ML 1ML Vial IV PRN (08:55)
[2025-02-24] MEDS ORDERED: MethylPREDNISolone Sod Succ 125 MG Vial IV SCH (09:00)
[2025-02-24] MEDS ORDERED: Famotidine 10 MG/ML 2ML Vial IV SCH (09:00)
[2025-02-24 11:03] VITALS: BP 109/72
[2025-02-24] MEDS ORDERED: Ketorolac Tromethamine 15mg Vial IV PRN (11:15)
[2025-02-24] MEDS ORDERED: ACET500 PO (11:16)
--- NOTE | 2025-02-24 13:18 | NUR ---
ADMIT NOTE- PT ADMITTED THROUGH THE ED. PT ARRIVED ALERT AND ORIENTED. SHE HAD A LIST OF MEDICATIONS THROUGH HER EMAR ON HER PHONE AND WAS ABLE TO GIVE A FULL MED LIST WITH IT. HOME MEDS RECONCILED. PT STATES SHE HAS HAD 5 FALLS AT HOME IN THE LAST 6 MONTHS. PT ASKED TO CALL FOR ASSISTANCE WITH AMBULATION OR ELIMINATION NEEDS.
--- NOTE | 2025-02-24 15:52 | NUR ---
SHIFT SUMMMARY- PT ALERT AND ORIENTED 1PA FOR SAFETY, ISO FOR ESBL IN THE URINE ON PRIOR ADMIT THIS YEAR. PT ADMITTED AFTER AN ANAPHYLACTIC REACTION TO PERCOCET FOLLOWED BYT ANOTHER TO OXYCODONE. SHE IS CURRENTLY IN BED, CALL LIGHT IN REACH, HOME CPAP AT THE BEDSIDE AND SHE USES IT EFFECTIVELY. PT HAS A Hx OF FALLS AT HOME. SHE HAS A SCATTERED RASH COVERING HER BODY AND SHE SCRATCHES AT IT INTENSELY. THE ED PLACED SOCKS ON HER HANDS TO PREVENT SKIN DAMAGE. NO NOTED S&S OF DISTRESS.
[2025-02-24] MEDS ORDERED: Insulin Human Lispro 100 Units/ML 3ML Syringe SC SCH (16:30)
[2025-02-24 16:47] VITALS: BP 118/68
[2025-02-24] MEDS ORDERED: Albuterol 2.5 MG/3 ML VIAL INH SCH (16:50)
--- NOTE | 2025-02-24 16:53 | NUR ---
RECIEVED A CALL FROM TELE- PT O2 SATS DROPPED TO 87. PT WAS ON HER HOME CPAP, SHE WOKE AND REMOVED IT. SATS 87-88% ON ROOM AIR. PLACED ON 2L VIA NC AND COACHED DEEP BREATHING. LUNG SOUNDS DIM IN THE BASES SOME WHEEZES NOTED IN THE UPPER. MOSTLY DIMINISHED LUNG SOUNDS
[2025-02-24] MEDS ORDERED: Albuterol 2.5 MG/3 ML VIAL INH PRN (17:00)
[2025-02-24] MEDS ORDERED: Cyclobenzaprine HCl 10 MG Tab PO PRN (17:15)
[2025-02-24] MEDS ORDERED: Ipratropium Bromide INH 0.02% 0.5 mg/2.5ML Vial INH SCH ×2 (17:20→18:00)
[2025-02-24] MEDS ORDERED: Mometasone/Formoterol MDI 100/5 mcg 13 GM INH SCH (17:20)
[2025-02-24 20:04] VITALS: BP 123/70
[2025-02-24] MEDS ORDERED: Sertraline HCl 100 MG Tab PO SCH (21:00)
[2025-02-24] MEDS ORDERED: Aspirin 81 MG Chew PO SCH (21:00)
[2025-02-24] MEDS ORDERED: Montelukast Sodium 10 MG Tab PO SCH (21:00)
[2025-02-24] MEDS ORDERED: Rosuvastatin Calcium 10 MG Tab PO SCH (21:00)
[2025-02-25] MEDS ORDERED: MethylPREDNISolone Sod Succ 125 MG Vial IV SCH
[2025-02-25 00:04] VITALS: BP 125/72
--- NOTE | 2025-02-25 00:21 | NUR ---
nurse note RESIDENT MD PORTER CALLED VIA PHONE TO UPDATE THAT PATIENT STILL HAS HIVES T/O HER WHOLE BODY SHE IS ITCHING AND REQUESTING TOPICAL CREAM. NO NEW ORDERS AT THIS TIME.
[2025-02-25 03:45] VITALS: BP 119/79
--- NOTE | 2025-02-25 05:53 | NUR ---
shift summary Pt is A+O x4 able to make needs known, cooperative w/ cares. Pt has had red raised bumps all over her body for the duration of the shift "hives". She has been medicated per EMAR w/ diphenhydramine which only gives relief for a short duration. Pt cannot stop itching, provided w/ lotion and wipes to cleanse skin. Pt wearing 2L NC on and off during the night. Satting above 92%. Pt is SBA to the bathroom. On tele ST on the monitor rate 105. Denies chest pain or pressure. Call light in reach, bed in lowest postion, will report to oncoming RN.
[2025-02-25] MEDS ORDERED: Pantoprazole Sodium 40 MG Tab PO SCH (06:00)
[2025-02-25 06:06] LABS: BASOPHILS ABSOLUTE AUTO 0.03 K/mm3 (0.00-0.23); BASOPHILS PERCENT AUTO 0 % (0-2); EOSINOPHILS PERCENT AUTO 0 % (0-6); Hemoglobin 13.1 g/dL (11.5-16.0); IMMATURE GRAN ABSOLUTE AUTO 0.12 K/mm3 (0.00-0.10); IMMATURE GRAN PERCENT AUTO 1 % (0-1); LYMPHOCYTES ABSOLUTE AUTO 1.35 K/mm3 (0.84-5.20); LYMPHOCYTES PERCENT AUTO 8 % (21-46); MONOCYTES ABSOLUTE AUTO 1.09 K/mm3 (0.16-1.47); MONOCYTES PERCENT AUTO 7 % (4-13); Mean Corpuscular HGB Conc 32.8 g/dL (31.5-36.5); Mean Corpuscular Volume 92 fL (80-100); Mean Platelet Volume 9.9 fL (9.1-12.4); NEUTROPHILS ABSOLUTE AUTO 13.74 K/mm3 (1.96-9.15); NEUTROPHILS PERCENT AUTO 84 % (41-73); Platelet Count 292 K/mm3 (150-400); RDW Coefficient Variation 12.2 % (11.7-14.2); RDW Standard Deviation 41.4 fL (35.1-46.3); Red Blood Cell Count 4.36 M/mm3 (3.80-5.20); White Blood Cell Count 16.33 K/mm3 (4.00-11.30)
[2025-02-25 06:34] LABS: Albumin, Blood 3.7 g/dL (3.4-5.0); Albumin/Globulin Ratio 1.2 (0.8-1.8); Bilirubin, Total 0.6 mg/dL (0.1-1.0); Bun/Creatinine Ratio 36.5 (12.0-20.0); Calcium, Blood 8.9 mg/dL (8.5-10.1); Creatinine, Blood 0.82 mg/dL (0.40-1.00); Potassium, Blood 3.9 mmol/L (3.5-5.5); Total Protein, Blood 6.7 g/dL (6.4-8.2)
[2025-02-25 08:59] VITALS: BP 123/64
[2025-02-25] MEDS ORDERED: Hydrocortisone 2.5% Cream 30 GM Tube TOP SCH (09:00)
[2025-02-25] MEDS ORDERED: Enoxaparin 40 MG/0.4 ML SYR SC SCH (09:00)
[2025-02-25 11:38] VITALS: BP 110/92
[2025-02-25] MEDS ORDERED: HyDROXyzine HCl 25 MG Tab PO PRN ×2 (13:35→17:45)
[2025-02-25] MEDS ORDERED: Hydrocortisone 2.5% Cream 30 GM Tube TOP PRN (13:35)
[2025-02-25 15:34] VITALS: BP 123/77
--- NOTE | 2025-02-25 16:56 | NUR ---
SHIFT SUMMARY / TRANSFER TO 363 PT A&Ox4, CALLS AND COMMUNICATES NEEDS APPROPRIATELY. VERY RESTLESS AND ANXIOUS AT TIMES WHEN HIVES ARE CAUSING EXCESSIVE ITCHING. BP STABLE, SINUS 90's, DENIES CP/PRESSURE. SpO2> 92% RA WHILE AWAKE, HOME CPAP WHILE ASLEEP, DENIES SOB. SBA/IND IN ROOM. MANAGED PTs PAIN/ITCHING PER EMAR. NO S/S OF WORSING ANAPHYLACTIC REACTION. PT AND FAMILY NOTIFIED OF TRANSFER. ALL PT BELONGINGS GATHERED. REPORT GIVEN TO MEDICAL FLOOR RN. PT TRANSFERED VIA WHEELCHAIR BY CLINICAL STAFF MEMBER AT APPROXIMATELY [id number].
--- NOTE | 2025-02-25 19:08 | NUR ---
pt arrived from PCU very anxious and itching body all over, pt will not stop scratching, no skin breakdown but pt is very red with raised bumps. pt medicated with benadryl and toradol. will cont monitor. pt call light within reach
[2025-02-25 22:48] VITALS: BP 122/81
--- NOTE | 2025-02-26 06:45 | NUR ---
SHIFT SUMMARY AT START OF SHIFT, PT SITTING IN HER BED. APPROX 1949, PT UP TO BATHROOM WITH COMPLAINTS OF ITCHING. MEDICATED PER EMAR. PT ALSO STATED HER SURGICAL DRESSING HAD NOT BEEN CHANGED TODAY. THIS RN TO CHANGE SURGICAL DRESSING PER ORDERS AFTER BREATHING TX COMPLETE. NO SIGNS OF IRRITATION, SWELLING, OR INFLAMMATION VISIBLE. PT HAD QUESTIONS REGARDING IMAGING RESULTS IN HER ONLINE PT CHART. THIS RN EXPLAINED THE DIFFERENCE BETWEEN EVIDENT AND A DIAGNOSIS. ADVISED PT TO CONSULT HER PRIMARY CARE PROVIDER FOR FURTHER INFORMATION. PT IN BED WITH CPAP ON SLEEPING SOUNDLY.
[2025-02-26 06:51] LABS: BASOPHILS ABSOLUTE AUTO 0.01 K/mm3 (0.00-0.23); BASOPHILS PERCENT AUTO 0 % (0-2); EOSINOPHILS PERCENT AUTO 0 % (0-6); Hematocrit 36.4 % (33.0-51.0); Hemoglobin 12.1 g/dL (11.5-16.0); IMMATURE GRAN ABSOLUTE AUTO 0.08 K/mm3 (0.00-0.10); IMMATURE GRAN PERCENT AUTO 1 % (0-1); LYMPHOCYTES ABSOLUTE AUTO 0.96 K/mm3 (0.84-5.20); LYMPHOCYTES PERCENT AUTO 10 % (21-46); MONOCYTES ABSOLUTE AUTO 0.55 K/mm3 (0.16-1.47); MONOCYTES PERCENT AUTO 6 % (4-13); Mean Corpuscular HGB 30.3 pg (26.0-34.0); Mean Corpuscular HGB Conc 33.2 g/dL (31.5-36.5); Mean Corpuscular Volume 91 fL (80-100); Mean Platelet Volume 9.8 fL (9.1-12.4); NEUTROPHILS ABSOLUTE AUTO 8.27 K/mm3 (1.96-9.15); NEUTROPHILS PERCENT AUTO 84 % (41-73); Platelet Count 265 K/mm3 (150-400); RDW Coefficient Variation 12.1 % (11.7-14.2); RDW Standard Deviation 40.5 fL (35.1-46.3); Red Blood Cell Count 3.99 M/mm3 (3.80-5.20); White Blood Cell Count 9.87 K/mm3 (4.00-11.30)
[2025-02-26 07:24] LABS: Albumin, Blood 3.5 g/dL (3.4-5.0); Albumin/Globulin Ratio 1.2 (0.8-1.8); Bilirubin, Total 0.4 mg/dL (0.1-1.0); Bun/Creatinine Ratio 38.6 (12.0-20.0); Calcium, Blood 8.6 mg/dL (8.5-10.1); Creatinine, Blood 0.7 mg/dL (0.40-1.00); Potassium, Blood 4.7 mmol/L (3.5-5.5); Total Protein, Blood 6.5 g/dL (6.4-8.2)
[2025-02-26 08:20] VITALS: BP 121/80
[2025-02-26] MEDS ORDERED: Famotidine 20 MG Tab PO SCH (09:00)
[2025-02-26] MEDS ORDERED: DiphenhydrAMINE HCL 25 MG Cap PO PRN (09:15)
[2025-02-26] MEDS ORDERED: PredniSONE 20 MG Tab PO SCH (10:00)
[2025-02-26] MEDS ORDERED: BANOPHEN25 MG PO (16:15)
[2025-02-26] MEDS ORDERED: EPIPEN0.3 MG/0.3 IM (16:16)
[2025-02-26] MEDS ORDERED: CORTISONE60 GM TP (16:18)
[2025-02-26] MEDS ORDERED: PRED20 PO (16:18)
--- NOTE | 2025-02-26 17:37 | NUR ---
pt discharge orders received and implemented. meds faxed and verified with [facility] to assure they would be available. iv removed pt discharged and expressed understanding of instructions
== END 2025-02-26 16:40 | disposition home or self-care (01) ==
LOC: ER 19:34 → ERHOLD 22:53 → MEDS 02-24 07:37 → ER 02-24 07:37 → ERHOLD 02-24 07:37 → PCU 02-24 10:54 → ERHOLD 02-24 10:54 → PCU 02-25 16:53 → MEDS 02-25 16:53
PROVIDERS: Student in an Organized Health Care Education/Training Program; ADMIT Hospitalist
DX: T88.6XXA Anaphylactic reaction due to adverse effect of correct drug or medicament properly administered, initial encounter (principal); K42.0 Umbilical hernia with obstruction, without gangrene; T38.0X5A Adverse effect of glucocorticoids and synthetic analogues, initial encounter; E78.00 Pure hypercholesterolemia, unspecified; J45.909 Unspecified asthma, uncomplicated; Y84.8 Other medical procedures as the cause of abnormal reaction of the patient, or of later complication, without mention of misadventure at the time of the procedure; F41.9 Anxiety disorder, unspecified; F32.9 Major depressive disorder, single episode, unspecified; E03.9 Hypothyroidism, unspecified; I10 Essential (primary) hypertension; R30.0 Dysuria; G47.33 Obstructive sleep apnea (adult) (pediatric); K21.9 Gastro-esophageal reflux disease without esophagitis; E78.5 Hyperlipidemia, unspecified; Z86.73 Personal history of transient ischemic attack (TIA), and cerebral infarction without residual deficits; Z86.711 Personal history of pulmonary embolism; Z90.710 Acquired absence of both cervix and uterus; Z98.890 Other specified postprocedural states; Z88.0 Allergy status to penicillin; Z88.5 Allergy status to narcotic agent; Z88.2 Allergy status to sulfonamides; Z88.8 Allergy status to other drugs, medicaments and biological substances; Z91.018 Allergy to other foods; Z79.82 Long term (current) use of aspirin; Z79.899 Other long term (current) drug therapy; Z71.51 Drug abuse counseling and surveillance of drug abuser; Z90.49 Acquired absence of other specified parts of digestive tract; Z90.89 Acquired absence of other organs; Z90.722 Acquired absence of ovaries, bilateral; Z90.79 Acquired absence of other genital organ(s); Z79.01 Long term (current) use of anticoagulants; Z87.440 Personal history of urinary (tract) infections
CPT/HCPCS: 36415; 71046; 71260; 80053; 81001; 82947; 85025; 85379; 87086; 94640; 94664; 94760; 94762; 96372; 96374; 96375; 96376; 99285-25; A9270; C1781; G0378; J0171; J0780; J1100; J1200; J1885; J2405; J2704; J2919; J3010; J7120; J7512; Q9967

== ENCOUNTER 2025-03-09 16:19 | Emergency (ER) | payer OTHER ==
[~2025-03-09] VITALS: Ht 162.6 cm; Wt 82.5 kg
[2025-03-09 16:47] LABS: BASOPHILS ABSOLUTE AUTO 0.06 K/mm3 (0.00-0.23); BASOPHILS PERCENT AUTO 1 % (0-2); EOSINOPHILS ABSOLUTE AUTO 0.23 K/mm3 (0.00-0.68); EOSINOPHILS PERCENT AUTO 3 % (0-6); Hematocrit 39.4 % (33.0-51.0); Hemoglobin 13.4 g/dL (11.5-16.0); IMMATURE GRAN ABSOLUTE AUTO 0.03 K/mm3 (0.00-0.10); IMMATURE GRAN PERCENT AUTO 0 % (0-1); LYMPHOCYTES ABSOLUTE AUTO 3.05 K/mm3 (0.84-5.20); LYMPHOCYTES PERCENT AUTO 39 % (21-46); MONOCYTES ABSOLUTE AUTO 0.84 K/mm3 (0.16-1.47); MONOCYTES PERCENT AUTO 11 % (4-13); Mean Corpuscular Volume 91 fL (80-100); Mean Platelet Volume 9.2 fL (9.1-12.4); NEUTROPHILS ABSOLUTE AUTO 3.72 K/mm3 (1.96-9.15); NEUTROPHILS PERCENT AUTO 47 % (41-73); Platelet Count 253 K/mm3 (150-400); RDW Coefficient Variation 12.2 % (11.7-14.2); RDW Standard Deviation 40.9 fL (35.1-46.3); Red Blood Cell Count 4.32 M/mm3 (3.80-5.20); White Blood Cell Count 7.93 K/mm3 (4.00-11.30)
[2025-03-09 17:07] LABS: Albumin, Blood 3.9 g/dL (3.4-5.0); Albumin/Globulin Ratio 1.4 (0.8-1.8); Bilirubin, Total 0.5 mg/dL (0.1-1.0); Bun/Creatinine Ratio 18.1 (12.0-20.0); Calcium, Blood 9.1 mg/dL (8.5-10.1); Creatinine, Blood 0.77 mg/dL (0.40-1.00); Globulin, Blood 2.8 g/dL (2.2-4.0); Total Protein, Blood 6.7 g/dL (6.4-8.2)
[2025-03-09 21:00] VITALS: BP 119/79
== END 2025-03-09 21:26 | disposition home or self-care (01) ==
LOC: ER 16:19
PROVIDERS: Student in an Organized Health Care Education/Training Program
DX: R07.89 Other chest pain (principal); F41.9 Anxiety disorder, unspecified; J45.909 Unspecified asthma, uncomplicated; Z79.1 Long term (current) use of non-steroidal anti-inflammatories (NSAID); Z79.51 Long term (current) use of inhaled steroids; Z79.52 Long term (current) use of systemic steroids; Z79.899 Other long term (current) drug therapy; Z79.890 Hormone replacement therapy; Z79.02 Long term (current) use of antithrombotics/antiplatelets; Z88.0 Allergy status to penicillin; Z88.6 Allergy status to analgesic agent; Z88.8 Allergy status to other drugs, medicaments and biological substances; Z88.5 Allergy status to narcotic agent; Z88.2 Allergy status to sulfonamides; Z79.82 Long term (current) use of aspirin
CPT/HCPCS: 71260; 80053; 84484; 85025; 93005; 93010; 99285-25; Q9967

== ENCOUNTER → 2025-03-09 | Outpatient (CLI) | payer OTHER ==
[~2025-03-09] MED LIST changes: +BANOPHEN25 MG PO; +CORTISONE60 GM TP; +EPIPEN0.3 MG/0.3 IM
[2025-03-10 01:16] LABS: Adenovirus F 40/41 Not Detected (NOT DETECT); Campylobacter Sp Not Detected (NOT DETECT); Cryptosporidium Not Detected (NOT DETECT); Cyclospora Cayetanensis Not Detected (NOT DETECT); E. Coli O157 Not Detected (NOT DETECT); Entamoeba Histolytica Not Detected (NOT DETECT); Enteroaggregative E. coli-EAEC Not Detected (NOT DETECT); Enteropathogenic E. coli-EPEC Not Detected (NOT DETECT); Enterotoxigenic E. coli-ETEC Not Detected (NOT DETECT); Giardia Lamblia Not Detected (NOT DETECT); Plesiomonas Shigelloides Not Detected (NOT DETECT); Salmonella Sp Not Detected (NOT DETECT); Shiga Toxin-prod E. coli-STEC Not Detected (NOT DETECT); Shigella/Enteroin E. coli-EIEC Not Detected (NOT DETECT); Vibrio Cholerae Not Detected (NOT DETECT); Vibrio Sp Not Detected (NOT DETECT); Yersinia Enterocolitica Not Detected (NOT DETECT)
[2025-03-10 01:17] LABS: Astrovirus Not Detected (NOT DETECT); Norovirus GI/GII Not Detected (NOT DETECT); Rotavirus A Not Detected (NOT DETECT); Sapovirus Not Detected (NOT DETECT)
== END ==
LOC: LAB 14:22 → LAB SHORT 14:22
PROVIDERS: Student in an Organized Health Care Education/Training Program
DX: R19.7 Diarrhea, unspecified (principal)
CPT/HCPCS: 87507

== ENCOUNTER 2025-05-02 17:40 | Emergency (ER) | payer OTHER ==
[~2025-05-02] VITALS: Ht 162.6 cm; Wt 86.2 kg
[2025-05-02 17:47] VITALS: BP 143/74
[2025-05-02 18:24] LABS: BASOPHILS ABSOLUTE AUTO 0.05 K/mm3 (0.00-0.23); BASOPHILS PERCENT AUTO 1 % (0-2); EOSINOPHILS ABSOLUTE AUTO 0.26 K/mm3 (0.00-0.68); EOSINOPHILS PERCENT AUTO 4 % (0-6); Hematocrit 37.3 % (33.0-51.0); Hemoglobin 12.6 g/dL (11.5-16.0); IMMATURE GRAN ABSOLUTE AUTO 0.01 K/mm3 (0.00-0.10); IMMATURE GRAN PERCENT AUTO 0 % (0-1); LYMPHOCYTES ABSOLUTE AUTO 2.73 K/mm3 (0.84-5.20); LYMPHOCYTES PERCENT AUTO 44 % (21-46); MONOCYTES ABSOLUTE AUTO 0.67 K/mm3 (0.16-1.47); MONOCYTES PERCENT AUTO 11 % (4-13); Mean Corpuscular HGB 30.6 pg (26.0-34.0); Mean Corpuscular HGB Conc 33.8 g/dL (31.5-36.5); Mean Corpuscular Volume 91 fL (80-100); Mean Platelet Volume 9.4 fL (9.1-12.4); NEUTROPHILS ABSOLUTE AUTO 2.43 K/mm3 (1.96-9.15); NEUTROPHILS PERCENT AUTO 40 % (41-73); Platelet Count 270 K/mm3 (150-400); RDW Coefficient Variation 12.3 % (11.7-14.2); RDW Standard Deviation 40.5 fL (35.1-46.3); Red Blood Cell Count 4.12 M/mm3 (3.80-5.20); White Blood Cell Count 6.15 K/mm3 (4.00-11.30)
[2025-05-02 18:49] LABS: Albumin/Globulin Ratio 1.2 (0.8-1.8); Bilirubin, Total 0.2 mg/dL (0.1-1.0); Bun/Creatinine Ratio 22.3 (12.0-20.0); Calcium, Blood 9.2 mg/dL (8.5-10.1); Creatinine, Blood 0.76 mg/dL (0.40-1.00); Globulin, Blood 3.3 g/dL (2.2-4.0); Potassium, Blood 3.9 mmol/L (3.5-5.5); Total Protein, Blood 7.3 g/dL (6.4-8.2)
[2025-05-02] MEDS ORDERED: NiCARdipine HCL 50 MG in NS 250 ML IV SCH (21:15)
== END 2025-05-02 22:08 | disposition home or self-care (01) ==
LOC: ER 17:40
PROVIDERS: Student in an Organized Health Care Education/Training Program
DX: G45.9 Transient cerebral ischemic attack, unspecified (principal); J45.909 Unspecified asthma, uncomplicated; E03.9 Hypothyroidism, unspecified; Z86.711 Personal history of pulmonary embolism; Z86.73 Personal history of transient ischemic attack (TIA), and cerebral infarction without residual deficits; Z91.81 History of falling; Z88.0 Allergy status to penicillin; Z88.6 Allergy status to analgesic agent; Z88.8 Allergy status to other drugs, medicaments and biological substances; Z88.5 Allergy status to narcotic agent; Z88.2 Allergy status to sulfonamides; Z88.1 Allergy status to other antibiotic agents; Z79.82 Long term (current) use of aspirin; Z79.52 Long term (current) use of systemic steroids; Z79.899 Other long term (current) drug therapy
CPT/HCPCS: 70450; 70496; 70498; 80053; 85025; 93005; 93010; 99285-25; J7050; Q9967

== ENCOUNTER 2025-07-08 16:46 | Emergency (ER) | payer OTHER ==
[~2025-07-08] VITALS: Ht 162.6 cm; Wt 86.6 kg
[2025-07-08 17:06] VITALS: BP 130/84
== END 2025-07-08 20:29 | disposition home or self-care (01) ==
LOC: ER 16:46
DX: S93.402A Sprain of unspecified ligament of left ankle, initial encounter (principal); J45.909 Unspecified asthma, uncomplicated; E03.9 Hypothyroidism, unspecified; Y93.44 Activity, trampolining; Z86.73 Personal history of transient ischemic attack (TIA), and cerebral infarction without residual deficits; Z79.51 Long term (current) use of inhaled steroids; Z79.52 Long term (current) use of systemic steroids; Z79.82 Long term (current) use of aspirin; Z88.0 Allergy status to penicillin; Z88.5 Allergy status to narcotic agent; Z88.1 Allergy status to other antibiotic agents; Z88.8 Allergy status to other drugs, medicaments and biological substances
CPT/HCPCS: 73590; 73610; 73630

== ENCOUNTER → 2025-09-27 | Outpatient (CLI) | payer OTHER ==
[~2025-09-27] MED LIST changes: +BUSPIRONE HCL10 M6 PO; +methenamine hippurat
== END | disposition home or self-care (01) ==
LOC: LAB SHORT 15:29
DX: R30.0 Dysuria (principal)
CPT/HCPCS: 87086